=== PATIENT | male | born 1950 | race Caucasian/White ===

== ENCOUNTER 2017-06-10 06:21 | Day surgery (SDC) | payer OTHER ==
--- NOTE | 2017-06-08 13:46 | RAD REPORT ---
EXAM DESCRIPTION: RADOP - Outpt Chest Pa/Lat (2 Views) - 06/08/2017 1:38 pm CLINICAL HISTORY: coronaries artery disease/preop COMPARISON: July 2016 FINDINGS: The lungs appear clear of acute infiltrate. The heart is normal size. IMPRESSION: No acute abnormality is displayed
[2017-06-08 14:45] LABS: Absolute Lymphocytes (CBC) 1.4 K/uL (0.7-4.9); Absolute Monocytes 0.6 K/uL (0.1-1.3); Absolute Neutrophil 4.1 K/uL (1.8-8.0); Basophils % 0.5 % (0-1.3); Eosinophils % 1.5 % (0-4.4); Hematocrit 42.2 % (39.6-49.0); Lymphocytes % 22.3 % (15.3-44.8); MCH 33.5 pg (27.0-35.0); MPV 10.1 fL (7.6-11.3); Monocytes % 10.4 % (3.3-12.3); RBC Red Blood Cell Count 4.27 M/uL (4.33-5.43)
[2017-06-08 14:51] LABS: Protime INR 0.95
[2017-06-08 14:58] LABS: Potassium 4.1 mEq/L (3.6-5.0)
[2017-06-08 16:01] LABS: Platelet Estimate ADEQ; Urine White Blood Cell Casts OK
[2017-06-08 16:02] LABS: Anisocytosis SLIGHT; Blood Morphology Comment NOTED (NOT SEEN)
[2017-06-08 16:03] LABS: Macrocytosis SLIGHT; Stomatocytes 1+
[~2017-06-10 06:21] MED LIST: ATROPINE SULF 1 MG/10 ML SYR IV ONE; HEPA 1000U/500MLS 2,000 UNIT/1,000 ML BAG IV ONE; LIDOCAINE 1% 20 ML MDV ONE; NA CHLORIDE 0.9% 0 ML ONE; NA CHLORIDE 0.9% 500 ML ONE
[2017-06-10] MEDS ORDERED: MIDAZOLAM HCL 2 MG/2 ML INJ ONE (07:18)
[2017-06-10] MEDS ORDERED: FENTANYL CITR 100 MCG/2 ML ONE ×2 (07:18→08:01)
[2017-06-10] MEDS ORDERED: NITROGLYCERIN 0.4 MG/TAB SL ONE (07:55)
[2017-06-10] MEDS ORDERED: CARVEDILOL 6.25 MG TAB PO ONE (09:00)
[2017-06-10 09:39] VITALS: O2SAT 96
[2017-06-10 10:23] VITALS: BP 108/60; TEMP 97.8
--- NOTE | 2017-06-11 15:03 | OP ---
Date of Procedure: 06/10/2017 Surgeon: Flako Garcia MD Cigarette Paper Tester: Michelle Marroquin. Indication For The Procedure: Unstable angina and history of coronary artery disease. History Of Present Illness: Mr. Cox is a 67-year-old male who has had stents in the past that has f jas, underwent coronary artery bypass surgery, has been having symptoms of unstable angina, and adm itted as an outpatient to the engineering lab technician today. Procedure In Detail: He was prepped and draped in the routine sterile fashion and was given 2 mg of Versed for IV sedation. Right common femoral artery was cannulated with a 6-Italian sheath. StarClos e was used to close the case. Angiography in that region was normal. Six-Italian catheters were used to do the diagnostic catheterization. He had 100% left main, 100% LAD, and 100% circumflex. He had a MEEK to the LAD that is patent. He had a saphenous vein graft to the first diagonal that was occl uded. He had another saphenous vein graft to the first diagonal and that had a 90% ostial stenosis. The distal anastomotic site was also about 90% very tortuous. He had a rather large RCA that is dom inant with some [id number] plaquing and was given collaterals to the second OM. The patient to lerated the procedure well. There were no complications. Blood loss was 5 cc. Total conscious rj tion was 45 minutes. LV-gram was done with a right Raquel catheter showing normal ejection fraction . EDP slightly elevated at 18. Normal wall motion. Final Diagnosis: Coronary artery disease, severe. Plan: Plan for now is for medical therapy. I will add Ranexa 500 mg 1 p.o. b.i.d. to his regimen. He does not tolerate beta-blockers. He is already on aspirin and statin. I will see him in the offi ce in the next week or 2. He can go home after 2 hours of bedrest. The case was discussed in detail with his family. SHELLI/CHENTE Voice ID: [id number] Report ID: [id number]
== END 2017-06-10 10:05 | disposition home health service (06) ==
LOC: CCL 06:21
DX: I25.110 Atherosclerotic heart disease of native coronary artery with unstable angina pectoris (principal); I25.700 Atherosclerosis of coronary artery bypass graft(s), unspecified, with unstable angina pectoris; I25.82 Chronic total occlusion of coronary artery; Z95.1 Presence of aortocoronary bypass graft; I10 Essential (primary) hypertension; E78.5 Hyperlipidemia, unspecified; E78.6 Lipoprotein deficiency; F17.210 Nicotine dependence, cigarettes, uncomplicated; Z88.8 Allergy status to other drugs, medicaments and biological substances; Z85.038 Personal history of other malignant neoplasm of large intestine; Z85.46 Personal history of malignant neoplasm of prostate; Z82.49 Family history of ischemic heart disease and other diseases of the circulatory system
CPT/HCPCS: 36415; 71046; 80048; 85025; 85610; 85730; 93459; 93567; C1893; J2250; J3010 ×2; 93005; J0583

== ENCOUNTER 2019-06-18 08:04 | Emergency (ER) | payer OTHER ==
[2019-06-18 08:51] LABS: Urine Blood NEGATIVE (NEG); Urine Glucose TRACE (NEG); Urine Protein 2+ (NEG); Urine Specific Gravity 1.025 (1.005-1.030); Urine pH 6.5 (5.0-7.0)
[2019-06-18 08:57] LABS: Hematocrit 32.1 % (39.6-49.0); MPV 10.5 fL (7.6-11.3); RBC Red Blood Cell Count 2.81 M/uL (4.33-5.43)
[2019-06-18 08:59] LABS: Protime INR 1.31
[2019-06-18 09:04] LABS: Urine Bacteria NONE SEEN /HPF (NONE SEEN)
[2019-06-18 09:05] LABS: Urine Culture Reflex Order NOT NEEDED; Urine Urothelial Cells >20 /HPF (NONE SEEN)
[2019-06-18 09:23] LABS: Albumin 2.3 g/dL (3.4-5.0); Bilirubin Direct 23.1 mg/dL (0-0.2); Protein, Total 6.3 g/dL (6.4-8.2)
[2019-06-18 09:25] LABS: Bilirubin Total 26.9 mg/dL (0.2-1.0)
[2019-06-18] MEDS ORDERED: FENTANYL CITR 100 MCG/2 ML ONE (09:40)
[2019-06-18] MEDS ORDERED: OCTREOTIDE ACETATE 100 MCG/ML ONE (09:40)
[2019-06-18] MEDS ORDERED: OCTREOTIDE 500 MCG in NA CHLORIDE 0.9% 500 ML IV ONE (09:45)
--- NOTE | 2019-06-18 09:47 | RAD REPORT ---
EXAM DESCRIPTION: RAD - Chest Single View - 06/18/2019 9:29 am CLINICAL HISTORY: volume overload COMPARISON: July 2016 TECHNIQUE: AP portable chest image was obtained 06/18/2019 9:29 am . FINDINGS: No peripheral mass or consolidation. Chronic interstitial pattern accentuated by shallow i nspiration. Heart size is prominent. Vasculature within normal limits. Sternotomy wires are in place. No measurable pleural effusion and no pneumothorax. No acute bony abnormality seen. No acute aortic findings suspected. IMPRESSION: Borderline cardiomegaly without significant failure or volume overload. No focal mass or infiltrate.
--- NOTE | 2019-06-18 10:07 | RAD REPORT ---
EXAM DESCRIPTION: US - Abdomen Exam Limited - 06/18/2019 9:53 am CLINICAL HISTORY: jaundice COMPARISON: Abdomen Exam Complete dated 07/08/2017 FINDINGS: Small stones and sludge are present and normal size gallbladder. Gallbladder wall is thick ened mildly and edematous. Small amount of pericholecystic fluid is present believed to be part of a small amount of overall intraperitoneal ascites. Biliary tree is not well visualized but does not appear dilated. Partially imaged liver shows prominent fatty infiltration pattern with poor sonographic penetrance. IMPRESSION: Small amount of stones and sludge present in a normal size gallbladder. There is also ga llbladder wall thickening/ edema. No biliary tree dilatation identifiable. Diffuse fatty infiltration of the liver.
[2019-06-18 10:11] LABS: Blood Morphology Comment NOTED (NOT SEEN); Platelet Estimate ADEQ
[2019-06-18 10:12] LABS: Anisocytosis 2+; Macrocytosis 2+; Platelets, Giant FEW; Poikilocytosis 1+; Polychromasia 1+
--- NOTE | 2019-06-18 10:28 | RAD REPORT ---
EXAM DESCRIPTION: CT - Abdomen Pelvis Wo Contrast - 06/18/2019 10:06 am CLINICAL HISTORY: jaundice;Abd pain COMPARISON: Abdomen Pelvis W Contrast dated 07/19/2015; Abdomen Exam Limited dated 06/18/2019 TECHNIQUE: Axial [address] imaging of the abdomen and pelvis was performed without IV contrast. No IV contrast was given because of allergy, abnormal renal function, patient refusal or physician re quest. No oral contrast administered. All CT scans are performed using dose optimization technique as appropriate and may include automated exposure control or mA/KV adjustment according to patient size. FINDINGS: No suspicious findings in the lung bases. Liver is enlarged and shows diffuse fatty infiltration with no focal liver lesion identifiable. Splee n and pancreas show no acute findings. No biliary tree dilatation. Nieto of the gallbladder are mildl y thickened. Earlier ultrasound showed stones and sludge to be present. No hydronephrosis or suspicious renal mass. No significant adrenal finding. Isodense renal masses an d pyelonephritis cannot be excluded in the absence of IV contrast. The urinary bladder is without sig nificant finding. No gastric dilatation or gastric wall thickening. Small bowel loops are not dilated. Patient has mode rate severity montes diverticulosis. Rectal anastomotic site shows no mass, wall thickening or active pr ocess. No diverticulitis findings or other acute colon process. Right abdomen bowel anastomotic site also without acute finding. No free air or pneumatosis. Trace amount of free fluid seen in the right upper quadrant. No mass or b ulky lymphadenopathy. Focal changes to the anterior abdominal wall are probably from a remote ostomy and prior surgical procedures. Small fat only right inguinal hernia is present. Small right inguinal lymph nodes are present. No suspicious bony findings. Arterial tree calcifications are present. No aneurysm. Assessment is limited in the absence of contra st. IMPRESSION: Wall thickening of the gallbladder with trace amount of free fluid in the right upper qu adrant. When combined with the ultrasound findings, acute cholecystitis is possible and needs correla tion with clinical presentation. No biliary tree dilatation or acute pancreatic process. Hepatomegaly with with diffuse fatty infiltration. No focal liver lesion.
[2019-06-18] MEDS ORDERED: CEFTRIAXONE/SWI 1gm 1 GM/10 ML SYR ONE (10:54)
[2019-06-18] MEDS ORDERED: NA CHLORIDE 0.9% 1,000 ML ONE (10:54)
--- NOTE | 2019-06-18 11:19 | EDPHYS ---
Physician Documentation [facility] Name: Jesús Cox Age: 69 yrs Sex: Male : 1950 Arrival Date: 06/18/2019 Time: 08:11 Bed 20 Private MD: ED Physician Cm Barksdale HPI: 06/17 08:32 This 69 yrs old Male presents to ER via Ambulatory with complaints of rn Jaundice. 08:32 Reports noticed 3 days ago skin started turning yellow, reports assoc swelling "all rn over", no fever/cough/chest pain. Reports daily drinker up to about a week ago, hx of colon and prostate cancer but had resection and chemo and has been cancer free for some time. Noticed decreased urine output as well. No focal abd pain, instead reports abdomen feels tight. . Onset: The symptoms/episode began/occurred 3 day(s) ago. Severity of symptoms: At their worst the symptoms were moderate in the emergency department the symptoms are unchanged. The patient has not experienced similar symptoms in the past. The patient has not recently seen a physician. Historical: - Allergies: 08:18 amlodipine; hb 08:18 ezetimibe; hb 08:18 Lisinopril; hb 08:18 Metoprolol Tartrate; hb 08:18 Omeprazole; hb 08:18 Plavix; hb 08:18 triclopidine; hb - PMHx: 08:18 COLON CA; Hypertension; PROSTATE CA; hb - PSHx: 08:18 Heart stents; CABG; Colon resection; prostatectomy; hb - Immunization history:: Adult Immunizations up to date. - Social history:: Smoking status: Patient denies any tobacco usage or history of. - Family history:: not pertinent. - Hospitalizations: : No recent hospitalization is reported. ROS: 08:32 Constitutional: Negative for fever, chills, and weight loss, Eyes: Negative for injury, rn pain, redness, and discharge, Neck: Negative for injury, pain, and swelling, Cardiovascular: Negative for chest pain, palpitations, and edema, Respiratory: Negative for shortness of breath, cough, wheezing, and pleuritic chest pain, Abdomen/GI: Negative for nausea, vomiting, diarrhea, and constipation, MS/Extremity: Negative for injury and deformity, Skin: + yellowing of skin Neuro: Negative for headache, weakness, numbness, tingling, and seizure. Exam: 08:32 Constitutional: This is a well developed, well nourished patient who is awake, alert, rn and in no acute distress, ambulatory to room without assistance Head/Face: Normocephalic, atraumatic. Eyes: + scleral icterus Cardiovascular: Regular rate and rhythm. No pulse deficits. Respiratory: Mild tachypnea, diminished at bases Abdomen/GI: firm abdomen with possible fluid wave, no focal tenderness Skin: warm, dry, no cellulitis, + jaundice of head and torso MS/ Extremity: Pulses equal, no cyanosis. Neurovascular intact. Full, normal range of motion. Equal circumference. 2+ pitting edema throughout Neuro: Awake and alert, GCS 15, oriented to person, place, time, and situation. Cranial nerves II-XII grossly intact. Motor strength 5/5 in all extremities. Sensory grossly intact. Cerebellar exam normal. Normal gait. Vital Signs: 08:13 BP 119 / 82; Pulse 88; Resp 16; Temp 97.2; Pulse Ox 99% ; Weight 102.06 kg; Height 5 hb ft. 9 in. (175.26 cm); Pain 8/10; 09:30 BP 119 / 76; Pulse 83; Resp 18; Pulse Ox 100% on R/A; Pain 7/10; em 10:39 BP 81 / 55; Pulse 73; em 11:00 BP 83 / 63; Pulse 71; Resp 18; Pulse Ox 99% on R/A; Pain 4/10; em 11:15 BP 92 / 61; Pulse 73; Resp 16; Pulse Ox 99% on R/A; em 12:07 BP 108 / 76; Pulse 71; Resp 18; Pulse Ox 99% on R/A; Pain 5/10; em 08:13 Body Mass Index 33.23 (102.06 kg, 175.26 cm) hb MDM: 08:12 Patient medically screened. rn 09:22 Differential Diagnosis UGIB, alcoholic liver disease, cirrhosis, hepatitis, cancer. ED rn course: Pt states allergy to omeprazole, not sure what allergic reaction is, does not take daily antacid medication, will hold for now until he gets more information. . 10:46 ED course: Consulted with Dr. Goldstein, is concerned may need ERCP, requests transfer rn to [facility]. Pt with questionable cholecystitis vs decompensated acute liver failure. . 11:15 Data reviewed: vital signs, nurses notes, lab test result(s), radiologic studies, CT rn scan, ultrasound, and as a result, I will admit patient. Counseling: I had a detailed discussion with the patient and/or guardian regarding: the historical points, exam findings, and any diagnostic results supporting the discharge/admit diagnosis, lab results, radiology results, the need to transfer to another facility, for higher level of care. ED course: Accepted for transfer to [facility] for GI and hepatology, most likely alcoholic hepatitis but also with UGIB. Dr. Marrero requests PPI drip, notified of reported allergy, states not a true allergy. . 06/17 08:30 Order name: Basic Metabolic Panel; Complete Time: 09:30 rn 06/17 08:30 Order name: CBC with Diff rn 06/17 08:30 Order name: Creatinine for Radiology; Complete Time: 09:24 rn 06/17 08:30 Order name: Hepatic Function; Complete Time: 09:30 rn 06/17 08:30 Order name: Lipase; Complete Time: 09:30 rn 06/17 08:30 Order name: PT-INR; Complete Time: 09:05 rn 06/17 08:30 Order name: AMMONIA; Complete Time: 09:24 rn 06/17 08:30 Order name: Urine Microscopic Only; Complete Time: 09:24 rn 06/17 08:30 Order name: XRAY Chest (1 view); Complete Time: 10:37 rn 06/17 08:46 Order name: Urine Dipstick--Ancillary (enter results); Complete Time: 09:05 bd 06/17 09:16 Order name: Occult Blood--Ancillary; Complete Time: 10:55 bd 06/17 09:27 Order name: Hepatitis Panel 06/17 10:12 Order name: Manual Differential EDMS 06/17 08:30 Order name: IV Saline Lock; Complete Time: 08:52 rn 06/17 08:30 Order name: Labs collected and sent; Complete Time: 08:51 rn 06/17 08:30 Order name: Urine Dipstick-Ancillary (obtain specimen); Complete Time: 08:48 rn 06/17 09:24 Order name: CT Abd/Pelvis - Without Contrast; Complete Time: 10:37 rn 06/17 09:25 Order name: US Abdomen Limited; Complete Time: 10:37 rn Administered Medications: 09:45 Drug: fentaNYL (PF) 25 mcg Route: IVP; Site: right antecubital; em 10:31 Follow up: Response: No adverse reaction; Marked relief of symptoms; Pain is decreased; em RASS: Alert and Calm (0) 09:47 Drug: Octreotide 50 mcg Route: IV; Rate: calculated rate; Site: right antecubital; em 10:31 Drug: Octreotide Infusion (50 mcg/hr) - (Octreotide 500 mcg, NS 0.9% 500 ml) Route: IV; em Rate: 50 ml/hr; Site: left antecubital; 10:56 Drug: NS 0.9% 1000 ml Route: IV; Rate: 1000 ml; Site: left antecubital; em 13:00 Follow up: IV Status: Completed infusion; IV Intake: 1000ml em 10:56 Drug: Rocephin 1 grams Route: IV; Rate: calculated rate; Site: left antecubital; em 12:00 Follow up: Response: No adverse reaction; IV Status: Completed infusion; IV Intake: 10mlem 11:25 Drug: ProTONIX 40 mg Route: IVP; Site: right antecubital; em 12:00 Follow up: Response: No adverse reaction em 11:53 Drug: ProTONIX 8 mg/hr Route: IV; Rate: 25 ml/hr; Site: right antecubital; em 13:00 Follow up: IV Status: Infusion continued upon transfer em Point of Care Testing: Guaiac: 09:23 Stool Guaiac: Positive; Stool Hemoccult Control: Pass; rn Disposition: 06/18/19 11:[address] [facility]. Diagnosis are Melena, Alcoholic hepatitis without ascites, Upper GI bleed. - Reason for transfer: Higher level of care. - Accepting physician is Dr. Marrero. - Condition is Stable. - Problem is new. - Symptoms have improved. Signatures: Dispatcher [employer] Pantera Vargas RN RN em Cm Barksdale MD MD rn Baxter, Heather, RN RN Corrections: (The following items were deleted from the chart) 09:36 08:31 Abdomen Pelvis W Con+CT.RAD.BRZ ordered. TARUNAZ TARUNAZ 13:38 11:18 06/18/2019 11:[address] [facility]. em Diagnosis is Melena; Alcoholic hepatitis without ascites; Upper GI bleed. Reason for transfer: Higher level of care. Accepting physician is Dr. Marrero. Condition is Stable. Problem is new. Symptoms have improved. rn
--- NOTE | 2019-06-18 11:19 | ER ---
Nurse's Notes [facility] Name: Jesús Cox Age: 69 yrs Sex: Male : 1950 Arrival Date: 06/18/2019 Time: 08:11 Bed 20 Private MD: Diagnosis: Melena;Alcoholic hepatitis without ascites;Upper GI bleed Presentation: 06/17 08:13 Chief complaint: Lethargy and nausea x 2 weeks, SOB, dark stool and abdominal pain x 3 hb days, noticed yellowing of skin and sclera yesterday. Coronavirus screen: Proceed with normal triage. Patient reports shortness of breath or difficulty breathing. Ebola Screen: No symptoms or risks identified at this time. Initial Sepsis Screen: Does the patient meet any 2 criteria? No. Patient's initial sepsis screen is negative. Does the patient have a suspected source of infection? No. Patient's initial sepsis screen is negative. Risk Assessment: Do you want to hurt yourself or someone else? Patient reports no desire to harm self or others. Onset of symptoms was May 2019. 08:13 Method Of Arrival: Ambulatory hb 08:13 Acuity: MJ 3 hb Historical: - Allergies: 08:18 amlodipine; hb 08:18 ezetimibe; hb 08:18 Lisinopril; hb 08:18 Metoprolol Tartrate; hb 08:18 Omeprazole; hb 08:18 Plavix; hb 08:18 triclopidine; hb - PMHx: 08:18 COLON CA; Hypertension; PROSTATE CA; hb - PSHx: 08:18 Heart stents; CABG; Colon resection; prostatectomy; hb - Immunization history:: Adult Immunizations up to date. - Social history:: Smoking status: Patient denies any tobacco usage or history of. - Family history:: not pertinent. - Hospitalizations: : No recent hospitalization is reported. Screenin:30 Abuse screen: Denies threats or abuse. Nutritional screening: No deficits noted. em Tuberculosis screening: No symptoms or risk factors identified. Fall Risk None identified. Assessment: 08:30 General: Appears in no apparent distress. comfortable, Behavior is calm, cooperative, em appropriate for age, Denies fever. Pain: Complains of pain in abdomen Pain currently is 8 out of 10 on a pain scale. Neuro: Level of Consciousness is awake, alert, obeys commands, Oriented to person, place, time, situation, Appropriate for age Moves all extremities. Gait is steady, Speech is normal, Facial symmetry appears normal. Cardiovascular: Patient's skin is warm and dry. Edema pitting to left midcalf, left ankle, right midcalf and right ankle. Respiratory: Airway is patent Respiratory effort is even, unlabored, Respiratory pattern is regular, symmetrical. GI: Abdomen is round bruised on abdomen diffusely discolored, Bowel sounds present X 4 quads. Abd is rigid X 4 quads. Reports bloody stool. : Reports inability to void. Derm: Skin is intact, is thin, Skin is jaundiced. Musculoskeletal: Range of motion: intact in all extremities. 09:10 Reassessment: Dr. Barksdale at bedside. em 10:00 Reassessment: Patient appears in no apparent distress at this time. Patient and/or em family updated on plan of care and expected duration. Pain level reassessed. Patient is alert, oriented x 3, equal unlabored respirations, skin warm/dry/pink. 10:30 Reassessment: BP 81/55, provider notified, new medication orders received. em 12:03 Reassessment: Patient appears in no apparent distress at this time. report given to em Prabhu RN at [facility], pending EMS transportation. 13:13 Reassessment: Patient appears in no apparent distress at this time. Patient and/or em family updated on plan of care and expected duration. Pain level reassessed. Patient is alert, oriented x 3, equal unlabored respirations, skin warm/dry/pink. report given to EMS. Vital Signs: 08:13 BP 119 / 82; Pulse 88; Resp 16; Temp 97.2; Pulse Ox 99% ; Weight 102.06 kg; Height 5 hb ft. 9 in. (175.26 cm); Pain 8/10; 09:30 BP 119 / 76; Pulse 83; Resp 18; Pulse Ox 100% on R/A; Pain 7/10; em 10:39 BP 81 / 55; Pulse 73; em 11:00 BP 83 / 63; Pulse 71; Resp 18; Pulse Ox 99% on R/A; Pain 4/10; em 11:15 BP 92 / 61; Pulse 73; Resp 16; Pulse Ox 99% on R/A; em 12:07 BP 108 / 76; Pulse 71; Resp 18; Pulse Ox 99% on R/A; Pain 5/10; em 08:13 Body Mass Index 33.23 (102.06 kg, 175.26 cm) ED Course: 08:11 Patient arrived in ED. mr 08:12 Cm Barksdale MD is Attending Physician. rn 08:18 Triage completed. hb 08:18 Arm band placed on. hb 08:20 Pantera Russ, RN is Primary Nurse. em 08:30 Patient has correct armband on for positive identification. Placed in gown. Bed in low em position. Call light in reach. Side rails up X2. Pulse ox on. NIBP on. 08:45 Initial lab(s) drawn, by me, sent to lab. Inserted saline lock: 20 gauge in right em antecubital area, using aseptic technique. Blood collected. 08:48 Urine Dipstick--Ancillary (enter results) Sent. [facility] 08:48 Urine Microscopic Only Sent. [facility] 08:48 Urine collected: clean catch specimen, tea colored. 5 09:29 XRAY Chest (1 view) In Process Unspecified. EDMS 09:52 US Abdomen Limited In Process Unspecified. EDMS 10:07 CT Abd/Pelvis - Without Contrast In Process Unspecified. EDMS 12:52 No provider procedures requiring assistance completed. Patient transferred, IV remains em in place. Administered Medications: 09:45 Drug: fentaNYL (PF) 25 mcg Route: IVP; Site: right antecubital; em 10:31 Follow up: Response: No adverse reaction; Marked relief of symptoms; Pain is decreased; em RASS: Alert and Calm (0) 09:47 Drug: Octreotide 50 mcg Route: IV; Rate: calculated rate; Site: right antecubital; em 10:31 Drug: Octreotide Infusion (50 mcg/hr) - (Octreotide 500 mcg, NS 0.9% 500 ml) Route: IV; em Rate: 50 ml/hr; Site: left antecubital; 10:56 Drug: NS 0.9% 1000 ml Route: IV; Rate: 1000 ml; Site: left antecubital; em 13:00 Follow up: IV Status: Completed infusion; IV Intake: 1000ml em 10:56 Drug: Rocephin 1 grams Route: IV; Rate: calculated rate; Site: left antecubital; em 12:00 Follow up: Response: No adverse reaction; IV Status: Completed infusion; IV Intake: 10mlem 11:25 Drug: ProTONIX 40 mg Route: IVP; Site: right antecubital; em 12:00 Follow up: Response: No adverse reaction em 11:53 Drug: ProTONIX 8 mg/hr Route: IV; Rate: 25 ml/hr; Site: right antecubital; em 13:00 Follow up: IV Status: Infusion continued upon transfer em Point of Care Testing: Guaiac: 09:23 Stool Guaiac: Positive; Stool Hemoccult Control: Pass; morning nanny: 12:00 IV: 10ml; Total: 10ml. em 13:00 IV: 1000ml; Total: 1010ml. em Outcome: 11:18 ER care complete, transfer ordered by . rn 13:14 Transferred by ground EMS to [facility], Transfer form completed. em X-rays sent w/ patient. 13:14 Condition: good 13:14 Instructed on the need for transfer, Demonstrated understanding of instructions. 13:38 Patient left the ED. em Signatures: Dispatcher [employer] Shanice Naik Edgar RN RN Cm Hernandez MD MD rn Baxter, Heather, RN RN Wendy Blair [facility] Corrections: (The following items were deleted from the chart) 10:50 08:13 Coronavirus screen: Patient reports a cough. Patient reports shortness of breath hb or difficulty breathing. Patient denies measured and/or subjective temperature greater than 100.4F prior to today's visit. Patient denies travel on a cruise ship or to a country the [facility] currently lists as an affected area. Patient denies contact with known and/or suspected case of COVID-19. hb 12:05 08:30 Pain: Complains of pain in abdomen Pain currently is 88 out of 10 on a pain em scale. em 12:52 12:52 Patient admitted, IV remains in place. em em
[2019-06-18] MEDS ORDERED: PANTOPRAZOLE 40 MG INJ ONE (11:26)
[2019-06-18] MEDS ORDERED: PANTOPRAZOLE INJ 80 MG in NA CHLORIDE 0.9% 250 ML IV ONE (11:30)
[2019-06-18 13:46] VITALS: TEMP 97.2
[2019-06-18 13:50] VITALS: O2SAT 99
[2019-06-18 13:53] VITALS: BP 108/76
[2019-06-20 12:36] LABS: HBsAG Nonreactive (Nonreactive)
== END 2019-06-18 13:38 | disposition short-term general hospital (02) ==
LOC: ER 08:04
DX: K92.1 Melena (principal); K70.10 Alcoholic hepatitis without ascites; I10 Essential (primary) hypertension; Z88.8 Allergy status to other drugs, medicaments and biological substances; Z95.1 Presence of aortocoronary bypass graft; Z85.038 Personal history of other malignant neoplasm of large intestine; Z85.46 Personal history of malignant neoplasm of prostate; Z95.818 Presence of other cardiac implants and grafts
CPT/HCPCS: 85025; 80048; 36415; 82140; 85610; 80076; 82272; 83690; 80074; 74176; 71045; 76705; J2354 ×2; C9113 ×2; J3010; J0696; J7030 ×2; J7040; 81003; 81015; 96365; 96368; 96375; 99285